=== PATIENT | male | born 1975 | race Caucasian/White ===

== ENCOUNTER 2025-09-28 12:15 | Emergency (ER) | payer BC, SELFPAY ==
--- NOTE | ~2025-09-28 | XR_ITS ---
Examination: XR chest 2V Clinical History: Syncope Comparison: None Technique: PA and Lateral Findings: Cardiomediastinal silhouette normal size and configuration. Lungs clear. No acute bony abnormality. IMPRESSION: 1. No acute cardiopulmonary findings. Reviewed, dictated and finalized at location [facility] [employer]
--- NOTE | 2025-09-28 12:24 | ECG_ITS ---
Test Date: 2025-09-28 12:26:46 Measurements Intervals [place] Rate: 104 P: 62 ID: [id number] QRS: 16 QRSD: 94 T: 33 QT: 340 QTc: 448 Interpretive Statements SINUS TACHYCARDIA INFERIOR MYOCARDIAL INFARCTION , OF INDETERMINATE AGE Electronically Signed On 09-29-2025 00:09:23 NUCLEAR LICENSING ENGINEER by Pablito Gonzalez D.O
[2025-09-28 12:25] VITALS: BP 144/88; PULSE 108; RESP 22; TEMP 36.7; O2SAT 99
[2025-09-28 12:50] VITALS: BP 133/93; PULSE 100; RESP 18; O2SAT 98
[2025-09-28 12:50] LABS: Hematocrit 53.7 % (42.0-52.0); Hemoglobin 18.5 g/dL (14.0-18.0); Immature Granulocyte Percent A 0.6 % (0-0.5); Immature Platelet Fraction Pct 24.5 % (0.9-11.2); Lymphocytes Absolute Auto 1.19 K/mm3 (0.9-3.2); Mean Corpuscular HGB Conc 34.5 g/dl (32-36); Mean Corpuscular Hemoglobin 32.3 pg (26-34); Mean Corpuscular Volume 93.7 fl (80-100); Nucleated Red Blood Cells Absolute Auto 0.000 K/mm3 (0.0-0.012); Nucleated Red Blood Cells Perc 0.0 % (0.0-0.2); Platelet Count Result 108 k/mm3 (150-375); Red Blood Count 5.73 M/mm3 (4.6-6.20); White Blood Count 8.1 K/mm3 (4.5-10.0)
[2025-09-28 12:51] VITALS: BP 133/83; PULSE 107
[2025-09-28 12:52] VITALS: BP 130/91; PULSE 109
[2025-09-28 12:53] VITALS: BP 120/93; PULSE 112
[2025-09-28 13:11] LABS: Alanine Aminotransferase 94 U/L (6-50); Albumin Level 5.3 g/dL (3.5-5.1); Alkaline Phosphatase 77 U/L (38-126); Anion Gap 13 mmol/L (4-12); Aspartate Amino Transferase 56 U/L (17-59); Bilirubin,Total 1.1 mg/dL (0.2-1.3); Blood Urea Nitrogen 19 mg/dL (9-20); Calcium 10.5 mg/dL (8.4-10.2); Carbon Dioxide 24 mmol/L (22-30); Chloride 103 mmol/L (98-107); Estimated CRCL calculation 67 ml/min; Estimated Glomerular Filt Rate 48; Glucose 156 mg/dL (65-110); Potassium 4.3 mmol/L (3.4-5.0); Sodium 140 mmol/L (137-145); Total Protein 9.3 g/dL (6.3-8.2)
--- NOTE | 2025-09-28 13:49 | ED.SYNCOPE ---
HPI - Syncope General Chief Complaint: Syncope Stated Complaint: SYNCOPE Time Seen by Provider: 09/28/25 13:29 Source: patient and family Mode of arrival: ambulatory Limitations: no limitations History of Present Illness HPI narrative: This is a 50-year-old male with history of hypertension who presents to the ED for syncope. Patient states that he was playing basketball this morning when he had a tightening sensation to his posterior neck. He states that he gets this occasionally about twice a year however it was worse this time so he stopped playing basketball. He states that he was driving home when his vision began doing turn white so he pulled over and he laid down. His came to get him and when he stood up out of the car he had a syncopal episode that lasted a couple seconds per the . He reports that he feels at his baseline at this time. He ate breakfast this morning. He did not drink anything this morning and is unsure if he drinks inappropriate mouth normally. Related Data Home Medications ?Medication ?Instructions ?Recorded ?Confirmed ?Last Taken ?Type clonazepam 0.5 mg tablet 0.5 mg PO DAILY 10/21/19 09/22/21 Unknown History escitalopram oxalate 5 mg tablet 5 mg PO DAILY 06/23/21 09/22/21 Unknown History glucosamine sulfate 500 mg tablet 500 mg PO DAILY 09/22/21 09/22/21 Unknown History (Glucosamine) pseudoephedrine HCl 60 mg tablet 30 mg PO Q4-6H PRN 09/22/21 09/22/21 Unknown History Allergies Allergy/AdvReac Type Severity Reaction Status Date / Time No Known Allergies Allergy Verified 09/28/25 12:16 Review of Systems Review of Systems: Gen.: Denies fevers or chills Eyes: Denies eye pain or visual change ENT: Denies congestion Respiratory: Denies shortness of breath or cough CV: Denies chest pain or palpitations GI: Denies abdominal pain nausea, emesis or diarrhea denies burning, urgency, frequency or hematuria Musculoskeletal: Denies back pain or muscle pain Neuro: Denies numbness, tingling, weakness or focal weakness Skin: Denies rash Except as documented, all other systems reviewed and negative PMFSH Past Medical History Medical History Allergic rhinosinusitis KAYDEN (generalized anxiety disorder) Melanoma Family History Family History Mother Family history of osteoarthritis Family history of coronary artery disease, Onset Age: 63 Patient's mother is Father Carcinoma of colon, Onset Age: 53 Patient's father is Social History Social History Second hand tobacco smoke exposure: No Alcohol intake: current Drinks per week: 7 Substance use: never Substance use type: does not use Living arrangements: with family Occupation/Education: occupation Gender identity (if verbalized by the patient): Male Exam Narrative: APPEARANCE: No acute distress, nontoxic, resting in bed EYES: EOMI HEENT: Normocephalic, atraumatic, OMM RESPIRATORY: No respiratory distress Clear to auscultation bilaterally with no rhonchi wheezing or rales. CARDIOVASCULAR: Tachycardic with regular rhythm without murmurs rubs or gallops. ABDOMINAL: Soft, nontender, nondistended, no rebound or guarding MUSCULOSKELETAl: Moves all extremities. No clubbing, cyanosis or edema. NEURO: Awake and alert. Following commands, speech normal, no focal deficits SKIN:: Warm, dry. No rashes lesions or abrasions PSYCHIATRIC: Normal affect/mood, Course Vital Signs Vital signs: Vital Signs Temperature 98.1 F 09/28/25 12:25 Pulse Rate 108 H 09/28/25 12:25 Respiratory Rate 22 H 09/28/25 12:25 Blood Pressure 144/88 H 09/28/25 12:25 Pulse Oximetry 99 09/28/25 12:25 Oxygen Delivery Room Air 09/28/25 12:25 Temperature 98.1 F 09/28/25 12:25 Pulse Rate 90 09/28/25 14:16 Respiratory Rate 22 H 09/28/25 14:16 Blood Pressure 152/98 H 09/28/25 14:16 Pulse Oximetry 97 09/28/25 14:16 Oxygen Delivery Room Air 09/28/25 12:25 MDM - Syncope MDM Narrative Medical decision making narrative: 50-year-old male Presenting for syncope. On initial evaluation patient was in no acute distress afebrile, hemodynamic stable. Differentials include but are not limited to: Cardiogenic syncope, vasovagal syncope, orthostatic hypotension, PE, electrolyte abnormality hypoglycemia, seizure, CVA Notable exam findings: Nonfocal neuro exam. Heart and lungs clear. Mucous membranes moist I personally reviewed the patient's lab result. Notable lab findings: CBC without significant abnormalities. Mild CHEO with creatinine 1.54. Mildly elevated ALT at 94. I personally reviewed the patient's images and interpret as follows: Chest x-ray: Normal cardiac silhouette, no consolidations, no pleural effusions, no pulmonary vascular congestion I personally reviewed the patient's EKGs: Sinus tachycardia rate of 104, normal axis, normal intervals, Q-waves in inferior leads, no acute ST or T-wave changes Patient's orthostatics were negative. However coli is story was very consistent with orthostatic hypotension induced syncope especially in the setting of recent exercise and decreased p.o. intake. Patient also recently been started on a new antihypertensive medication which likely contributed to this. Patient was given 2 L NS bolus and did have improvement of his tachycardia. He was able to ambulate through the department without any difficulty. Patient was deemed appropriate for discharge at this time. Patient was advised follow-up with their PCP in the next week for re-evaluation. Patient was agreeable to this plan. Given strict return precautions. Medical Records Attestation: I reviewed the patient's medical records. Lab Data Attestation: I reviewed the patient's lab results. 09/28/25 12:42 09/28/25 12:42 Labs: Lab Results 09/28/25 09/28/25 Range/Units 12:42 12:46 WBC 8.1 (4.5-10.0) K/mm3 RBC 5.73 (4.6-6.20) M/mm3 Hgb 18.5 H (14.0-18.0) g/dL Hct 53.7 H (42.0-52.0) % MCV 93.7 (80-100) fl MCH 32.3 (26-34) pg MCHC 34.5 (32-36) g/dl RDW 11.9 (11.5-14.5) % Plt Count 108 L (150-375) k/mm3 MPV 13.5 H (7.4-10.4) fl Immature Gran % (Auto) 0.6 H (0-0.5) % Neut % (Auto) 72.9 (45.5-73.1) % Lymph % (Auto) 14.7 L (18.3-44.2) % [place] % (Auto) 7.5 (2.6-8.5) % Eos % (Auto) 3.6 (0-4.4) % Baso % (Auto) 0.7 (0.2-1.2) % Lymph # (Auto) 1.19 (0.9-3.2) K/mm3 [place] # (Auto) 0.6 (0.1-0.6) K/mm3 Eos # (Auto) 0.3 (0-0.3) K/mm3 Baso # (Auto) 0.1 (0.0-0.1) K/mm3 Abs Immat Gran (auto) 0.05 H (0.00-0.031) K/mm3 Absolute Neuts (auto) 5.9 (1.3-6.7) K/mm3 Absolute Nucleated RBC 0.000 (0.0-0.012) K/mm3 Nucleated RBC % 0.0 (0.0-0.2) % % Immature Plt Fraction 24.5 H (0.9-11.2) % Sodium 140 (137-145) mmol/L Potassium 4.3 (3.4-5.0) mmol/L Chloride 103 (98-107) mmol/L Carbon Dioxide 24 (22-30) mmol/L Anion Gap 13 H (4-12) mmol/L BUN 19 (9-20) mg/dL Creatinine 1.54 H (0.7-1.3) mg/dL Estim Creat Clear Calc 67 ml/min Estimated GFR 48 L (59 - ) Glucose 156 H (65-110) mg/dL POC Capillary Glucose 148 H (65-105) mg/dl Calcium 10.5 H (8.4-10.2) mg/dL Total Bilirubin 1.1 (0.2-1.3) mg/dL AST 56 (17-59) U/L ALT 94 H (6-50) U/L Alkaline Phosphatase 77 (38-126) U/L Total Protein 9.3 H (6.3-8.2) g/dL Albumin 5.3 H (3.5-5.1) g/dL Imaging Data Radiologist's impression: Impressions Chest X-Ray 09/28/25 13:27 IMPRESSION: 1. No acute cardiopulmonary findings. Discharge Plan Discharge Clinical Impression: Orthostatic hypotension, Acute dehydration Patient Disposition: Home Condition: Stable Instructions: Antibiotic Form, Dehydration (ED), Syncope (ED) Additional Instructions: Drink plenty of water to stay hydrated. Follow-up with your PCP in the next week for re-evaluation to discuss your antihypertensive medication. Return to ED for any new or worsening symptoms. Patient Language: Monegasque Prescriptions: No Action clonazepam 0.5 mg tablet 0.5 mg PO DAILY propranolol 20 mg tablet 20 mg PO Q12H Qty: 60 3RF escitalopram oxalate 5 mg tablet 5 mg PO DAILY glucosamine sulfate [Glucosamine] 500 mg tablet 500 mg PO DAILY Rx Instructions: administer with a meal pseudoephedrine HCl 60 mg tablet 30 mg PO Q4-6H PRN Rx Instructions: DNExceed 4 doses/24h methylprednisolone [Medrol (Giovanni)] 4 mg tablets,dose pack See Rx Instructions PO PER PKG DIR Qty: 21 0RF Rx Instructions: PO PER PKG DIR azelastine 137 mcg (0.1 %) aerosol,spray 1 spray intranasal Q12H Qty: 30 3RF Rx Instructions: administer into each nostril Follow-up/Referrals: Anna Blackwell MD [Primary Care Provider, Family Practice]
[2025-09-28] MEDS: SODIUM CHLORIDE 0.9% IV 1,000 ML 999 ML IV CONT ×2 (14:02)
[2025-09-28 14:16] VITALS: BP 152/98; PULSE 90; RESP 22; O2SAT 97
== END 2025-09-28 15:28 | disposition home or self-care (01) ==
PROVIDERS: Family Medicine; Emergency Provider Student in an Organized Health Care Education/Training Program; PCP Family Medicine
DX: I95.1 Orthostatic hypotension (principal); E86.0 Dehydration; I10 Essential (primary) hypertension; Z85.820 Personal history of malignant melanoma of skin; F41.1 Generalized anxiety disorder
CPT/HCPCS: 36415; 71046; 80053; 82948; 85025; 85055; 93005; 96360; 99284; J7030